=== PATIENT | female | born 1955 | race Asian ===

== ENCOUNTER 2021-03-27 14:23 | Outpatient (CLI) | payer BC, OTHER | END 2021-03-27 15:46 | disposition home or self-care (01) | LOC: SCA 14:23 | PROVIDERS: ATTEND Internal Medicine Cardiovascular Disease | DX: I07.1 Rheumatic tricuspid insufficiency (principal); R94.31 Abnormal electrocardiogram [ECG] [EKG]; R07.89 Other chest pain | CPT/HCPCS: 93005; 93306 ==